=== PATIENT | female | born 1990 | race American Indian/Alaskan Native ===

== ENCOUNTER 2022-02-05 19:58 | Inpatient (IN) | payer MEDICAID ==
[2022-02-05] MEDS ORDERED: BUTORPHANOL 2 MG/1 ML INJ IV PRN (22:32)
[2022-02-05] MEDS ORDERED: CARBOPROST TROMETHAMINE 250 MCG/1 ML INJ IM PRN (22:32)
[2022-02-05] MEDS ORDERED: LOPERAMIDE 2 MG CAP PO PRN (22:32)
[2022-02-05] MEDS ORDERED: NalbUPHINE 10 MG/1 ML INJ IV PRN (22:32)
[2022-02-05] MEDS ORDERED: ACETAMINOPHEN 325 MG TAB PO PRN (22:32)
[2022-02-05] MEDS ORDERED: LIDOCAINE (2%) 20 MG/1 ML VIAL 20 ML MDV INFILTRATI ONE (22:32)
[2022-02-05] MEDS ORDERED: TERBUTALINE 1 MG/1 ML INJ SUB-Q PRN (22:32)
[2022-02-05] MEDS ORDERED: miSOPROStol 200 MCG TAB PR PRN (22:32)
[2022-02-05] MEDS ORDERED: ePHEDrine SULFATE 50 MG/1 ML INJ IV PRN (22:32)
[2022-02-05] MEDS ORDERED: MINERAL OIL 30 ML ORAL LIQD PO PRN (22:32)
[2022-02-05] MEDS ORDERED: METHYLERGONOVINE MALEATE 0.2 MG/ML VIAL IM PRN (22:32)
[2022-02-05] MEDS ORDERED: OXYTOCIN DRIP 30 UNITS/500 ML BAG IV SCH (23:00)
[2022-02-05 23:01] LABS: Mean Corpuscular HGB Conc 33 % (30-34); Mean Corpuscular Volume 92 fl (79-97); Platelet Count 318 K/mm3 (140-440); Red Blood Count 4.03 M/mm3 (3.65-5.03); Red Cell Distribution Width 16.2 % (13.2-15.2)
[2022-02-06] MEDS: BUTORPHANOL 2 MG/1 ML INJ IV PRN ×3 (00:15→04:58)
[2022-02-06] MEDS: LACTATED RINGERS 1,000 ML IV SCH ×2 (00:32→07:51)
--- NOTE | 2022-02-06 06:57 | Anesthesia Day of Surgery ---
Anesthesia Day of Surgery - Day of Surgery Patient Examined: Yes Patient H&P Reviewed: Yes Patient is NPO: Yes
--- NOTE | 2022-02-06 06:58 | Anesthesia Consultation ---
Anesthesia Consult and Med Hx Date of service: 02/06/22 - Airway Anesthetic Teeth Evaluation: Poor ROM Head & Neck: Adequate Mental/Hyoid Distance: Adequate Mallampati Class: Class II Intubation Access Assessment: Probably Good - Pulmonary Exam CTA: Yes - Cardiac Exam Cardiac Exam: RRR - Pre-Operative Health Status ASA Pre-Surgery Classification: ASA2 Proposed Anesthetic Plan: Spinal - Pre-Anesthesia Comment Pre-Anesthesia Comments: csection 2013 - Pulmonary Hx Smoking: No Hx Asthma: No COPD: No Hx Pneumonia: No - Cardiovascular System Hx Hypertension: No - Central Nervous System Hx Seizures: No Hx Psychiatric Problems: No - Endocrine Hx Renal Disease: No Hx End Stage Renal Disease: No Hx Hypothyroidism: No Hx Hyperthyroidism: No - Hematic Hx Anemia: No Hx Sickle Cell Disease: No - Other Systems Hx Alcohol Use: No Hx Substance Use: No Hx Obesity: No
--- NOTE | 2022-02-06 07:29 | History and Physical Report ---
History of Present Illness Date of examination: 02/06/22 Date of admission: 02/05/22 22:32 Chief complaint: Nonreassuring tracing History of present illness: 31-year-old -0-1-1 at 40+2 weeks who presents for evaluation secondary to have a an audible deceleration in the office. The patient was being seen by maternal- medicine with findings of intrauterine growth restriction. The patient's course is complicated by history of a previous delivery. Past History Past Medical History: no pertinent history Past Surgical History: section Social history: single - Obstetrical History Expected Date of Delivery: 02/03/22 Actual Gestation: 40 Week(s) 3 Day(s) : 3 Para: 1 Hx # Term Pregnancies: 1 Number of Pregnancies: 0 Spontaneous Abortions: 1 Induced : 0 Number of Living Children: 1 Medications and Allergies Allergies Allergy/AdvReac Type Severity Reaction Status Date / Time No Known Allergies Allergy Unverified 10/08/13 11:00 Home Medications Medication Instructions Recorded Confirmed Last Taken Type QUEtiapine [SEROquel] 200 mg PO QHS #30 tablet 03/31/20 Unknown Rx RX: Acetaminophen [Acetaminophen 650 mg PO Q4H PRN tablet 03/31/20 Unknown Rx TAB] RX: Valproic Acid [Depakene] 250 mg PO BID #60 capsule 03/31/20 Unknown Rx Active Meds: Active Medications Acetaminophen (Acetaminophen 325 Mg Tab) 650 mg PO Q4H PRN PRN Reason: Pain, Mild (1-3) Butorphanol Tartrate (Butorphanol 2 Mg/1 Ml Inj) 1 mg IV Q2H PRN PRN Reason: Pain, Moderate(4-6) LABOR PAIN Butorphanol Tartrate (Butorphanol 2 Mg/1 Ml Inj) 2 mg IV Q2H PRN PRN Reason: Pain , Severe (7-10) Last Admin: 02/06/22 04:58 Dose: 2 mg Carboprost Tromethamine (Carboprost Tromethamine 250 Mcg/1 Ml Inj) 250 mcg IM ONCE PRN PRN Reason: Uterine Bleeding Ephedrine Sulfate (Ephedrine Sulfate 50 Mg/1 Ml Inj) 10 mg IV Q2M PRN PRN Reason: Hypotension Oxytocin/Sodium Chloride (Pitocin/Ns 30 Unit/500ml) 30 units in 500 mls @ 2 mls/hr IV TITR AVERY; Protocol Lactated Ringer's (Lactated Ringers) 1,000 mls @ 125 mls/hr IV DIRECT AVERY Last Admin: 02/06/22 00:32 Dose: 125 mls/hr Loperamide HCl (Loperamide 2 Mg Cap) 2 mg PO ONCE PRN PRN Reason: give with Hemabate Methylergonovine Maleate (Methylergonovine Maleate 0.2 Mg/Ml Vial) 0.2 mg IM ONCE PRN PRN Reason: Uterine Bleeding Mineral Oil (Mineral Oil 30 Ml Oral Liqd) 30 ml PO QHS PRN PRN Reason: Constipation Misoprostol (Misoprostol 200 Mcg Tab) 800 mcg AK ONCE PRN PRN Reason: Uterine Bleeding Nalbuphine HCl (Nalbuphine 10 Mg/1 Ml Inj) 10 mg IV Q2H PRN PRN Reason: Pain, Moderate (4-6) Terbutaline Sulfate (Terbutaline 1 Mg/1 Ml Inj) 0.25 mg SUB-Q ONCE PRN PRN Reason: Hyperstimulation/Hypertonicity Review of Systems All systems: negative - Vital Signs Vital signs: Vital Signs Pulse Ox 98 02/06/22 00:04 Temp Pulse Resp BP Pulse Ox 98.6 F 78 18 116/75 98 02/06/22 01:36 02/06/22 07:12 02/06/22 04:58 02/06/22 04:22 02/06/22 07:12 - Physical Exam Breasts: Positive: deferred Cardiovascular: Regular rate Lungs: Positive: Clear to auscultation Abdomen: Positive: normal appearance Results Result Diagrams: 02/05/22 22:18 Abnormal lab results 02/05/22 Range/Units 22:18 WBC 11.5 H (4.5-11.0) K/mm3 RDW 16.2 H (13.2-15.2) % All other labs normal. Assessment and Plan - Patient Problems (1) Term Current Visit: Yes Status: Acute Plan to address problem: Admit for delivery (2) Previous delivery affecting Current Visit: Yes Status: Acute (3) Intrauterine growth restriction affecting care of mother Current Visit: Yes Status: Acute
[2022-02-06] MEDS ORDERED: ceFAZolin/Water 2 GM/20 ML 2 GM/20 ML SYRINGE IV ONE (07:38)
[2022-02-06] MEDS ORDERED: METOCLOPRAMIDE 10 MG/2 ML INJ ONE (07:41)
[2022-02-06] MEDS ORDERED: BICITRA ORAL LIQD 30ML ONE (07:41)
[2022-02-06] MEDS ORDERED: FAMOTIDINE 20 MG/2 ML INJ IV ONE (07:48)
[2022-02-06] MEDS ORDERED: METOCLOPRAMIDE 10 MG/2 ML INJ IV ONE (07:48)
[2022-02-06] MEDS ORDERED: BICITRA ORAL LIQD 30ML PO ONE (07:48)
[2022-02-06] MEDS ORDERED: ONDANSETRON 4 MG/2 ML INJ ONE ×2 (07:58)
[2022-02-06] MEDS ORDERED: BUPIVACAINE/PF (0.5%) 5 MG/1 ML 30 ML VIAL INFILTRATI ONE (07:58)
[2022-02-06] MEDS ORDERED: LACTATED RINGERS 1,000 ML IV SCH (08:00)
[2022-02-06] MEDS ORDERED: ceFAZolin/Water 2 GM/20 ML 2 GM/20 ML SYRINGE IV NR (08:00)
[2022-02-06] MEDS ORDERED: OXYTOCIN DRIP 30 UNITS/500 ML BAG IV SCH ×2 (08:00→09:00)
[2022-02-06] MEDS ORDERED: SODIUM CHLORIDE 0.9% IRR 1,500 ML BOTTLE IR ONE (08:09)
[2022-02-06] MEDS ORDERED: WATER FOR IRRIG STERILE 1,500 ML BOTTLE IR ONE (08:09)
[2022-02-06] MEDS ORDERED: ceFAZolin/STERILE WATER 2 GM/20 ML SYRINGE IV ONE (08:09)
[2022-02-06] MEDS ORDERED: LANOLIN/ZINC/DIMETHICONE (LANSINOH) 7 GM TP PRN (08:11)
[2022-02-06] MEDS ORDERED: NALOXONE 0.4 MG/1 ML INJ IV PRN (08:11)
--- NOTE | 2022-02-06 08:15 | Procedure Note ---
OB Delivery Note - Delivery Date of Delivery: 02/06/22 Surgeon: RODERICK PRINCE Estimated blood loss: other (qbl 661ml) - Section Preop diagnosis: repeat Postop diagnosis: same section procedure: section, repeat low transverse Disposition: PACU Complications: none - Infant A at 1 minute: 8 at 5 minutes: 9 Infant Gender: Female (Weight 5 pounds 13 ounces)
--- NOTE | 2022-02-06 08:16 | Operative Report ---
Operative Report Operative Report: Date of surgery: February 06, 2022 Preoperative diagnosis: at 40+3 weeks; previous delivery; i ntrauterine growth restriction Postoperative diagnosis: Same as above Procedure: Repeat low transverse delivery Surgeon: Josefa Rosario M.D. Anesthesia: Regional Estimated blood loss: Q. BL 661 mL Findings: Liveborn female with Apgars of 8 and 9 weight 5 pounds 13 ounces Indications: 31-year-old at 40+3 weeks who presents for delivery secondary to postterm and findings of intrauterine growth restriction. The patient has a history of a previous delivery. Procedure: The patient was taken to the operating room and given regional anesthesia without complication. She was prepped and draped in a normal sterile fashion. A Pfannenstiel skin incision was made down to layer the fascia which was nicked in the midline extended laterally with the Bovie cautery. The superior aspect of the rectus fascia was grasped with [place] clamps x2 and the rectus muscles off sharply. This was done in inferior fashion as well. The rectus muscle midline and peritoneum entered bluntly. An Vidal retractor was then inserted. A bladder blade was placed. The vesicouterine peritoneum was then entered sharply with Metzenbaum scissors. A bladder flap was created digitally. A low transverse uterine incision was then made and extended digitally. There was clear fluid upon entry into the uterine cavity. The head was delivered through the incision with fundal pressure. The cord was clamped and cut x2 and infant was passed off to pediatrics. The placenta was then manually extracted. The uterus was then exteriorized and cleared of clots and debris. The uterine incision was then closed in a running locked fashion with 0 Vicryl additional imbricating stitch was applied for 2 layer closure. The posterior cul-de-sac was then copiously irrigated. The uterus was replaced back into the abdomen and pelvis were the gutters were then irrigated. The Vidal retractor was then removed. The peritoneum was then reapproximated with 3-0 Vicryl incorporating the rectus muscle. The fascia was then closed with 0 Vicryl in a running fashion. The skin was then reapproximated with 3-0 Monocryl on a Jignesh needle subcuticular fashion. Steri-Strips to place across the incision and a Crede procedures performed at the end of the surgery. A pressure dressing was applied to the incision. The surgery productive of a liveborn female with Apgars of 8 and 9 weight 5 pounds 13 ounces. The patient was taken to the recovery room in stable condition. All sponge laps and needle counts correct x2.
[2022-02-06] MEDS ORDERED: dexAMETHasone 20 MG/5 ML VIAL ONE (08:48)
[2022-02-06] MEDS ORDERED: SODIUM CHLORIDE 0.9% 100 ML ONE (08:50)
[2022-02-06] MEDS ORDERED: KETOROLAC 30 MG/1 ML INJ IV PRN (09:00)
[2022-02-06] MEDS ORDERED: MORPHINE 4 MG/1 ML INJ IV PRN (09:00)
[2022-02-06] MEDS ORDERED: WITCH HAZEL/ GLYCERIN PAD TP PRN (09:00)
[2022-02-06] MEDS ORDERED: ACETAMINOPHEN 325 MG TAB PO PRN (09:00)
[2022-02-06] MEDS ORDERED: IBUPROFEN 600 MG TAB PO PRN (09:00)
--- NOTE | 2022-02-06 09:24 | Progress Note ---
Spinal Anesthesia Block - Spinal Anesthesia Block Start Time: 08:05 Stop Time: 08:10 Performed by:: SCOTTY GARZON Procedure: Patient IDed, H&P reviewed, all questions and concerns were answered, and consent was signed. Timeout was performed at bedside. Patient in sitting position. Sterile prep and drape was performed. [3] ml of 1% lidocaine skin wheal at L[3]- L [4]. Needle introducer advanced. 25 gauge spinal needle advanced. Clear, free flowing CSF. negative blood, negative paresthesia. Spinal dose given. All needles removed. Patient tolerated procedure.
--- NOTE | 2022-02-06 09:24 | Progress Note ---
Regional Anesthesia Block - Regional Anesthesia Block Start Time: :08 Stop Time: :11 Performed By:: SCOTTY GARZON Procedure: Patient consented for TAP block for post surgical pain management. Patient identified, monitors placed, and time out performed. TAP identified bilaterally via ultrasound. Skin prepped bilaterally with [chlorhexidine] and [22g stimuplex] needle advanced to the TAP. [Marcaine 0.22% 35ml] injected under ultrasound guidance on the [left] side. [Marcaine 0.22% 35ml] injected under ultrasound guidance on the [right] side. Negative aspiration every 5mL, No change in heart rate or rhythm. Patient tolerated the procedure well. No apparent complications seen.
[2022-02-06] MEDS: D5W/LACTATED RINGERS 1,000 ML IV SCH ×2 (12:28→20:52)
[2022-02-06 13:17] LABS: Amphetamine Screen,Urine Negative; Benzodiazepines Screen,Urine Negative; Cannabinoid Screen,Urine Negative; Cocaine Screen,Urine Negative; Methadone Screen,Urine Negative; Opiate Screen,Urine Negative
[2022-02-06 13:24] LABS: Mucus,Urine FEW /HPF
[2022-02-06 13:28] LABS: Color,Urine Yellow (Yellow); WBC,Urine > 182.0 /HPF (0.0-6.0)
[2022-02-06 13:30] LABS: Bilirubin,Urine Negative (Negative); Blood,Urine Moderate (Negative); PH,Urine 6.5 (5.0-7.0); Protein,Urine <30 mg dL mg/dL (Negative)
[2022-02-06 20:21] LABS: Hepatitis C Virus Antibody Non-Reactive (NonReactive)
[2022-02-06 20:54] LABS: Hematocrit 30.9 % (30.3-42.9)
[2022-02-06] MEDS ORDERED: MAGNESIUM HYDROXIDE (MOM) ORAL LIQD UDC PO PRN (22:00)
[2022-02-06] MEDS: oxyCODONE /ACETAMINOPHEN 5-325MG TAB PO PRN (22:14)
[2022-02-07] MEDS: oxyCODONE /ACETAMINOPHEN 5-325MG TAB PO PRN ×3 (07:49→21:42)
--- NOTE | 2022-02-07 08:02 | Progress Note ---
Assessment and Plan A: POD#1 s/p repeat at term P: Routine postop advances Subjective - Subjective Date of service: 02/07/22 Principal diagnosis: s/p repeat at term Interval history: Pt without complaints. Yanez just removed. SCDs just removed. Decreasing lochia. Patient reports: appetite normal, pain well controlled, no voiding normally (yanez just removed ), no flatus, no bowel movement, no ambulating normally (SCDs in place ) : doing well Objective - Vital Signs Latest vital signs: Vital Signs Temp Pulse Resp BP BP Pulse Ox Pulse Ox 02/07/22 07:42 98.3 F 66 14 120/73 100 02/07/22 05:04 98.0 F 67 18 113/67 100 02/07/22 01:15 98 02/07/22 01:11 97.9 F 59 L 18 106/66 100 02/06/22 23:05 98 02/06/22 22:10 98 02/06/22 20:50 98 02/06/22 20:46 98.3 F 64 18 110/69 98 02/06/22 16:35 98 F 61 18 110/60 98 02/06/22 10:50 98.1 F 68 20 101/53 99 99 02/06/22 10:00 97.9 F 86 14 92/49 99 02/06/22 09:45 88 15 92/50 100 02/06/22 09:30 81 14 93/53 100 02/06/22 09:25 81 13 98/55 99 02/06/22 09:20 86 17 109/64 99 02/06/22 09:12 97.8 F 75 15 147/61 99 Intake and Output 02/06/22 02/07/22 02/07/22 22:59 06:59 14:59 Intake Total 1240 Output Total 300 500 Balance 940 -500 Intake: IV 1000 D5lr 1,000 ml @ 125 mls/ 1000 hr IV DIRECT AVERY Rx#: [id number] Oral 240 Output: Urine 300 500 Indwelling Catheter 300 500 Other: Total, Intake Amount 240 Total, Output Amount 300 500 - Exam Breasts: Present: deferred Abdomen: Present: soft Uterus: Present: fundal height at umbilicus Extremities: Present: edema (trace ) Incision: Present: dressed - Labs Labs: Abnormal lab results 02/06/22 02/06/22 Range/Units 12:52 20:41 Hgb 10.0 L (10.1-14.3) gm/dl Urine Blood Moderate A (Negative) Urine Urobilinogen 8.0 H (<2.0) mg/dL Urine WBC (Auto) > 182.0 H (0.0-6.0) /HPF
--- NOTE | 2022-02-07 11:18 | Post Anesthesia Evaluation ---
- Post Anesthesia Evaluation Patient Participated: Yes Airway Patent: Yes Stable Respiratory Function: Yes Nausea/Vomiting: No Temp > 96.8F: Yes Pain Manageable: Yes Adequeate Hydration: Yes Anesthesia Complications: No Block Receding Appropriately: Yes Patient on Ventilator: No
[2022-02-07] MEDS: LACTULOSE 20 GM/30 ML ORAL LIQD PO SCH ×2 (16:48→21:42)
[2022-02-08] MEDS: oxyCODONE /ACETAMINOPHEN 5-325MG TAB PO PRN (05:17)
--- NOTE | 2022-02-08 07:59 | Discharge Summary ---
Providers - Providers Date of Admission: 02/05/22 22:32 Date of discharge: 02/08/22 Attending physician: RODERICK PRINCE Primary care physician: RODERICK PRINCE Hospitalization Reason for admission: section Delivery: Procedure: section, repeat low transverse Discharge diagnosis: IUP at term delivered Hospital course: Patient presented for scheduled . Please see operative note for details of surgery. Postoperative course was uneventful. Condition at discharge: Good Disposition: 01 HOME / SELF CARE / HOMELESS - Discharge Diagnoses (1) Term Status: Acute (2) Previous delivery affecting Status: Acute (3) Intrauterine growth restriction affecting care of mother Status: Acute Plan - Discharge Medications Prescriptions: Ibuprofen [Motrin] 800 mg PO Q8HR PRN #60 tablet PRN Reason: Pain , Severe (7-10) oxyCODONE /ACETAMINOPHEN [Percocet 5/325] 1 tab PO Q6HR PRN #30 tablet PRN Reason: Pain - Provider Discharge Summary Activity: no sex for 6 weeks, no heavy lifting 4 weeks, no strenuous exercise Diet: routine Instructions: routine Additional instructions: [] Smoking cessation referral if applicable(refer to patient education folder for contact #) [] Refer to [facility]'s [facility] Booklet Call your doctor immediately for: * Fever > 100.5 * Heavy vaginal bleeding ( >1 pad per hour) * Severe persistent headache * Shortness of breath * Reddened, hot, painful area to leg or breast * Drainage or odor from incision. * Keep incision clean and dry at all times and follow doctor's instructions regarding bathing/showering Schedule incision check in 2 weeks - Follow up plan Follow up: RODERICK PRINCE MD [Primary Care Provider] - 7 Days
--- NOTE | 2022-02-08 07:59 | Progress Note ---
Assessment and Plan - Patient Problems (1) Term Current Visit: Yes Status: Acute Plan to address problem: Patient doing well Discharge home today (2) Previous delivery affecting Current Visit: Yes Status: Acute (3) Intrauterine growth restriction affecting care of mother Current Visit: Yes Status: Acute Subjective - Subjective Date of service: 02/08/22 Principal diagnosis: s/p repeat at term Interval history: Patient reports feeling well today. She is tolerating regular diet and her pain has been controlled with p.o. pain meds. Patient reports: appetite normal, voiding normally, pain well controlled : doing well Objective - Vital Signs Latest vital signs: Vital Signs Temp Pulse Resp BP BP Pulse Ox Pulse Ox 02/08/22 00:00 98.7 F 74 16 112/76 02/07/22 15:52 98.2 F 65 16 109/58 100 02/07/22 08:15 98 Intake and Output 02/07/22 02/08/22 02/08/22 22:59 06:59 14:59 Other: # Voids Void 1 - Exam Incision: Present: dressed
[2022-02-08 09:06] VITALS: BP 116/77
[2022-02-08] MEDS: LACTULOSE 20 GM/30 ML ORAL LIQD PO SCH (10:19)
== END 2022-02-08 12:20 | disposition home or self-care (01) | DRG 765 ==
LOC: TRG 19:58 → APU 20:00 → TRG 22:53 → LD 02-06 01:58 → APU 02-06 08:46 → OB 02-06 10:38
PROVIDERS: ADMIT Obstetrics & Gynecology; ATTEND Obstetrics & Gynecology
PROC: 10D00Z1 Extraction of Products of Conception, Low, Open Approach (ICD-10-PCS; principal; 2022-02-06)
PROC: 3E0T3BZ Introduction of Anesthetic Agent into Peripheral Nerves and Plexi, Percutaneous Approach (ICD-10-PCS; 2022-02-06)
DX: O34.211 Maternal care for low transverse scar from previous cesarean delivery (principal); O36.5930 Maternal care for other known or suspected poor fetal growth, third trimester, not applicable or unspecified; Z3A.40 40 weeks gestation of pregnancy; Z37.0 Single live birth; Z20.822 Contact with and (suspected) exposure to COVID-19
CPT/HCPCS: 36415; 80307; 81001; 85014; 85018; 85027; 86592; 86689; 86706; 86762; 86803; 86850; 86900; 86901; G0378; J3490; J7060; J7121; J0595; J0690; J1100; J1885; J2270; J2405; J2765; J7120; U0003